=== PATIENT | female | born 1990 | race African-American/Black ===

== ENCOUNTER 2024-08-07 13:25 | Emergency (ER) | payer MEDICAID, SELFPAY ==
--- NOTE | ~2024-08-07 | US_ITS ---
EXAMINATION: US OBSTETRICAL ULTRASOUND CLINICAL INFORMATION: Positive . Bleeding. COMPARISON: None available. TECHNIQUE: Transabdominal endovaginal pelvic ultrasound FINDINGS: Uterus is normal. There is no evidence for any residual reaction or gestational sac/30 gestational sac demonstrated. Central endometrial complex is prominent measuring up to 13 mm. No free fluid. No discrete lesion. There is no significant maternal adnexal mass. Trace free fluid which appears simple. Both ovaries are visualized and appear normal. US/US OB pelvic and transvaginal IMPRESSION: No evidence for intrauterine on this baseline exam. Correlate with hCG levels and consider short interval follow-up for further assessment. No adnexal lesion to indicate ectopic .. Electronically signed by: Fred Rosales MD 08/07/2024 04:04 PM EDT
[2024-08-07 13:32] VITALS: BP 131/86; PULSE 83; RESP 18; TEMP 37.2; O2SAT 96; BMI 31.2
--- NOTE | 2024-08-07 13:34 | ED_ITS ---
HPI - General Adult General Chief complaint: Vaginal Bleeding Stated complaint: preg+ , vaginal bleeding Time Seen by Provider: 08/07/24 13:40 Source: patient and family Mode of arrival: ambulatory Limitations: no limitations History of Present Illness ED Provider: DR. Ramires HPI narrative: 34-year-old female with previous 2 presented today after had vaginal spotting after wiped blood after urination today, no abdominal pain, no contraction, no severe vaginal bleeding. Patient is trying to get with her partner last menstrual period was 2nd week of last month, and patient took home test that was positive. Related Data Allergies Allergy/AdvReac Type Severity Reaction Status Date / Time amoxicillin Allergy Rash Verified 08/07/24 13:36 Review of Systems 2 Review of Systems: All other systems are reviewed and are negative Constitutional: Reports as per HPI and Reports no additional constitutional complaints Eyes: Reports as per HPI and Reports no additional eye complaints Reports system reviewed and no additional complaints, except as documented Cardiovascular: Reports as per HPI and Reports no additional cardiovascular complaints Respiratory: Reports as per HPI and Reports no additional respiratory complaints Gastrointestinal: Reports as per HPI and Reports no additional gastrointestinal complaints Genitourinary: Reports no additional female genitourinary complaints Musculoskeletal: Reports no additional musculoskeletal complaints Skin/Breast: Reports system reviewed and no additional complaints, except as docu Psychiatric: Reports no additional psychiatric complaints Endocrine: Reports no additional endocrine complaints Hematologic/Lymphatic: Reports no additional hematologic/lymphatic complaints Allergic/Immunologic: Reports no additional allergic/immunologic complaints Reports system reviewed and no additional complaints, except as documented and Reports Abnormal speech present [facility] Social History Social History Advance Directives: No Do you have a plan to hurt others: No Plan Physical Exam ED Vital Signs: Vital Signs - 24 hr 08/07/24 13:32 08/07/24 16:25 Temperature 98.9 F 98.5 F Pulse Rate 83 70 Respiratory Rate 18 17 Blood Pressure 131/86 100/45 L Pulse Oximetry 96 97 Oxygen Delivery Method Room Air Room Air BMI result Body Mass Index 31.2 Vital signs have been reviewed and appear to be correct. Blood pressure elevated. Heart rate normal. Respiratory rate normal. Temperature normal. Oxygen saturation normal. Appearance: Alert. Oriented X3. No acute distress. Head: Normal external exam. Normocephalic. Atraumatic. No Steiner signs noted. No raccoon eyes noted Eyes: PERRLA. EOMI. Conjunctiva and sclera normal. Eyelids normal. ENT: TM's Normal. Pharynx normal. Uvula midline. Moist mucous membranes. No trismus noted. No drooling noted. No muffled voice noted. Neck: Normal inspection. Neck supple. FROM. No adenopathy. Thyroid Normal. No meningeal signs. No neck mass noted. CVS: Normal heart rate and rhythm. Heart sound normal. No murmurs noted. Pulses normal throughout. Respiratory: No respiratory distress. Painless inspiration. Breath sounds normal. No wheezes/rales/rhonchi noted. Chest nontender. No accessory muscle usage noted or decreased air movement noted. Abdomen: Soft and nontender. Bowel sounds normal in all 4 quadrants. No distention noted. No organomegaly noted. No visible injury noted. Pelvic exam: Deferred for ultrasound. Back: No CVA tenderness. Full range of motion noted. Skin: Skin warm and dry. Normal skin color. Normal skin turgor. No rashes/lesions/lacerations noted. Extremities: No lower extremity edema. Extremities exhibit normal range of motion. Extremities nontender. Neuro: Oriented X 3. Cranial nerve exam: II-XII are grossly intact No motor deficit. No sensory deficit. Reflexes normal. Course Course Course Narrative: RME performed by Brianda Albarado PA-C. Patient is a 34 year old assigned female at presenting to the emergency department with vaginal bleeding. Patient states she has taken multiple at home tests and is . Patient states that she noticed some pink when she wiped just a few hours ago and is not having any pain. Patient states that her last menstrual cycle ended the 20 of July. Patient states that she has had 2 previous pregnancies, both abortions, no living children. Detailed physical exam and review of systems are deferred to the director of transportation. Labs, imaging, and swabs ordered. Patient placed back in the waiting room pending room availability and results. Reevaluation(s) Reevaluation #1: 34-year-old female in her very early stage with blood type B positive, serum hCG is 600, patient declined pelvic exam but reported no more vaginal bleeding, no pelvic contraction or pain, ultrasound showed no evidence of intrauterine which could be very early to detect any intrauterine patient was instructed to follow-up with her OB in 3-4 days to repeat the hCG patient already contacted her OB and will see them this week. Patient was educated to return to the emergency department if increased pain, increased bleeding, any lightheadedness or loss of consciousness. Time: 16:27 Medical Decision Making Differential Diagnosis Differential Diagnoses: The differential diagnosis associated with the presentation includes ( Ectopic , early , threatened miscarriage, severe anemia, blood type Rh incompatibility, UTI.) Admission/Observation Consideration of admission/observation: Escalation of care including admission/observation considered Lab Data MDM Lab Attestation statement: I reviewed the patient's lab results. 08/07/24 13:49 08/07/24 13:50 Labs: Lab Results 08/07/24 08/07/24 Range/Units 13:49 13:50 WBC 10.6 (4.8-10.8) X10*3/uL RBC 4.27 (4.20-5.50) X10*6/uL Hgb 13.5 (12.0-16.0) g/dl Hct 38.8 (37.0-47.0) % MCV 90.9 (80.0-98.0) fL MCH 31.6 (27.0-33.0) pg MCHC 34.8 (31.0-35.0) g/dl RDW 12.4 (11.0-16.0) % Plt Count 276 (160-400) X10*3/uL MPV 9.9 (9.4-12.3) fL Immature Gran % (Auto) 0.2 (0.0-0.4) % Neut % (Auto) 59.4 (45-73) % Lymph % (Auto) 28.9 (20-40) % Mcclain % (Auto) 8.8 (2-11) % Eos % (Auto) 2.0 (0-4) % Baso % (Auto) 0.7 (0-2) % Lymph # (Auto) 3.1 (1.2-4.9) X10*3/uL Mcclain # (Auto) 0.9 (0.1-1.2) X10*3/uL Eos # (Auto) 0.2 (0.0-0.4) X10*3/uL Baso # (Auto) 0.1 (0.0-0.2) X10*3/uL Abs Immat Gran (auto) 0.02 (0.00-0.03) X10*3/uL Absolute Neuts (auto) 6.3 (2.0-8.3) x10*3/uL Absolute Nucleated RBC 0.000 (0.0-0.012) X10*3/uL Nucleated RBC % (auto) 0.0 (0.0-0.2) /100WBC PT 10.4 L (10.9-12.4) SEC INR 0.9 (0.9-1.1) APTT 28.9 (26.0-36.8) SEC Sodium 139 (135-145) mmol/L Potassium 3.9 (3.3-5.1) mmol/L Chloride 109 H (96-108) mmol/L Carbon Dioxide 23 (22-29) mmol/L Anion Gap 11 L (12-20) BUN 11 (9-16) mg/dL Creatinine 0.84 (0.5-1.4) mg/dL Estim Creat Clear Calc 94.4 Estimated GFR > 60 Random Glucose 80 (60-115) mg/dL Calcium 9.4 (8.4-10.2) mg/dL Magnesium 2.3 (1.6-2.6) mg/dL Total Bilirubin 0.3 (0.0-1.0) mg/dL AST 16 (5-31) U/L ALT 12 (0-31) U/L Alkaline Phosphatase 66 (39-117) U/L Total Protein 7.3 (6.5-8.0) g/dL Albumin 4.0 (3.5-5.0) g/dL Beta HCG, Quant 602 mIU/mL Urine Color Yellow Urine Appearance Clear Urine pH 6.0 (5.0-9.0) Ur Specific [place] >= 1.030 H (1.005-1.025) Urine Protein Negative (Neg-Trace) mg/dL Urine Glucose (UA) Negative (Negative) mg/dL Urine Ketones Negative (Negative) mg/dL Urine Blood Negative (Negative) Urine Nitrite Negative (Negative) Ur Leukocyte Esterase Negative (Negative) Blood Type B Positive Independent Interpretation I performed an independent interpretation of an: Ultrasound (No evidence for intrauterine on this baseline exam. Correlate with hCG levels and consider short interval follow-up for further assessment. No adnexal lesion to indicate ectopic ..) Radiology Impression Discussion of test interpretation with radiology: I have reviewed the radiologist's reading. Discharge Plan Discharge Clinical Impression: Bleeding in early Patient Disposition: Home, Self-Care Instructions: Threatened Miscarriage (ED) Additional Instructions: follow-up with your OBGYN as was discussed in 2-3 days. Seek immediate medical attention for abdominal/pelvic pain or contraction, severe vaginal bleeding, feeling lightheadedness or passing out. Rest, avoid any strenuous activity, no sexual intercourse until all your symptoms resolve. Print Language: [place]
[2024-08-07 13:59] LABS: MANUAL DIFF FLAG NO
[2024-08-07 14:02] LABS: Appearance Urine Clear; Color Urine Yellow; Glucose Urine UA Negative (Negative); Leukocyte Esterase Urine Negative (Negative); Nitrite Urine Negative (Negative); Specific Gravity - Urine >= 1.030 (1.005-1.025); Urine Blood Negative (Negative); Urine Ketones Negative (Negative); Urine Protein Negative (Neg-Trace)
[2024-08-07 14:09] LABS: Basophils Absolute Auto 0.1 X10*3/uL (0.0-0.2); Basophils Percent Auto 0.7 % (0-2); Eosinophils Absolute Auto 0.2 X10*3/uL (0.0-0.4); Hematocrit 38.8 % (37.0-47.0); Hemoglobin 13.5 g/dl (12.0-16.0); Imm Gran Abs Auto 0.02 X10*3/uL (0.00-0.03); Imm Gran Pct Auto 0.2 % (0.0-0.4); Lymphocytes Absolute Auto 3.1 X10*3/uL (1.2-4.9); Lymphocytes Percent Auto 28.9 % (20-40); Mean Corpuscular HGB Conc 34.8 g/dl (31.0-35.0); Mean Corpuscular Hemoglobin 31.6 pg (27.0-33.0); Mean Corpuscular Volume 90.9 fL (80.0-98.0); Mean Platelet Volume 9.9 fL (9.4-12.3); Monocytes Absolute Auto 0.9 X10*3/uL (0.1-1.2); Monocytes Percent Auto 8.8 % (2-11); Neutrophils Absolute Auto 6.3 x10*3/uL (2.0-8.3); Neutrophils Percent Auto 59.4 % (45-73); Platelet Count 276 X10*3/uL (160-400); Red Blood Count 4.27 X10*6/uL (4.20-5.50); Red Cell Distribution Width 12.4 % (11.0-16.0); White Blood Count 10.6 X10*3/uL (4.8-10.8)
[2024-08-07 14:23] LABS: INTERNATIONAL NORM RATIO 0.9 (0.9-1.1); Prothrombin Time 10.4 SEC (10.9-12.4)
[2024-08-07 14:26] LABS: Partial Thromboplastin Time 28.9 SEC (26.0-36.8)
[2024-08-07 14:47] LABS: Alanine Aminotransferase 12 U/L (0-31); Alkaline Phosphatase 66 U/L (39-117); Anion Gap 11 (12-20); Aspartate Amino Transferase 16 U/L (5-31); Bilirubin Total 0.3 mg/dL (0.0-1.0); Blood Urea Nitrogen 11 mg/dL (9-16); Calcium 9.4 mg/dL (8.4-10.2); Carbon Dioxide 23 mmol/L (22-29); Chloride 109 mmol/L (96-108); Creatinine Clr Calc Pharmacy 94.4; Estimated Glomerular Filt Rate > 60; Glucose Random 80 mg/dL (60-115); HCG Quantitative 602 mIU/mL; Magnesium 2.3 mg/dL (1.6-2.6); Potassium 3.9 mmol/L (3.3-5.1); Sodium 139 mmol/L (135-145); Total Protein 7.3 g/dL (6.5-8.0)
[2024-08-07 16:25] VITALS: BP 100/45; PULSE 70; RESP 17; TEMP 36.9; O2SAT 97
[2024-08-07 16:27] LABS: Bacterial Vaginosis PCR POSITIVE (Negative); Candida Group PCR NOT DETECTED (Not Detect); Candida glab krusei PCR NOT DETECTED (Not Detect); Trichomonas vaginalis PCR NOT DETECTED (Not Detect)
[2024-08-07 16:54] VITALS: BP 100/45; PULSE 70; RESP 17; TEMP 36.9; O2SAT 97
[2024-08-07 17:05] LABS: CT PCR NOT DETECTED (Not Detect.); NG PCR NOT DETECTED (Not Detect.)
== END 2024-08-07 16:54 | disposition home or self-care (01) ==
PROVIDERS: Physician Assistant Medical; Emergency Provider Emergency Medicine
DX: O20.9 Hemorrhage in early pregnancy, unspecified (principal); Z3A.00 Weeks of gestation of pregnancy not specified
CPT/HCPCS: 0352U; 36415; 76801; 76817; 80053; 81003; 83735; 84702; 85025; 85610; 85730; 86900; 86901; 87491; 87591; 99283; 99284